=== PATIENT | female | born 1985 | race Two or more races ===

== ENCOUNTER 2018-08-20 14:54 | Outpatient (CLI) | payer OTHER | END 2018-08-20 15:10 | disposition home or self-care (01) | LOC: RAD 14:54 | DX: N20.0 Calculus of kidney (principal) ==

== ENCOUNTER 2018-08-25 11:06 | Outpatient (CLI) | payer OTHER | END 2018-08-25 12:40 | disposition home or self-care (01) | LOC: NUCLEAR 11:06 | DX: N20.0 Calculus of kidney (principal) | CPT/HCPCS: 78708; A9539; J1940 ==

== ENCOUNTER 2018-11-19 11:45 | Inpatient (IN) | payer OTHER ==
[~2018-11-19] VITALS: Ht 154.9 cm; Wt 79.4 kg
== END 2018-11-26 11:04 | disposition home or self-care (01) | DRG 661 ==
LOC: CIR.AMB 11-24 08:13 → EDSTATUS 11-24 08:14 → SURH 11-24 09:06 → O/R 11-24 11:55 → SURH 11-24 11:55
PROVIDERS: ADMIT Urology
PROC: BT1FZZZ Fluoroscopy of Left Kidney, Ureter and Bladder (ICD-10-PCS; 2018-11-24)
PROC: 0TC13ZZ Extirpation of Matter from Left Kidney, Percutaneous Approach (ICD-10-PCS; principal; 2018-11-24 13:00)
DX: N20.0 Calculus of kidney (principal)

== ENCOUNTER 2019-01-31 11:50 | Outpatient (CLI) | payer OTHER | END 2019-01-31 15:00 | disposition home or self-care (01) | LOC: LAB 11:50 | DX: N20.0 Calculus of kidney (principal) ==

== ENCOUNTER 2019-02-02 15:16 | Outpatient (CLI) | payer OTHER | END 2019-02-02 15:29 | disposition home or self-care (01) | LOC: LAB 15:16 | DX: N20.0 Calculus of kidney (principal) ==

== ENCOUNTER → 2021-07-23 | Outpatient (CLI) | payer OTHER | END | disposition home or self-care (01) | LOC: RAD 10:49 | PROVIDERS: ATTEND Urology | DX: N20.0 Calculus of kidney (principal) ==

== ENCOUNTER 2022-07-19 09:12 | Outpatient (CLI) | payer OTHER | END 2022-07-19 09:14 | disposition home or self-care (01) | LOC: RAD 09:12 | PROVIDERS: ATTEND Urology | DX: N20.0 Calculus of kidney (principal) ==